=== PATIENT | female | born 1985 | race Caucasian/White ===

== ENCOUNTER 2021-09-19 05:26 | Inpatient (IN) ==
--- NOTE | 2021-09-15 18:59 | History & Physical Report ---
Date of Service September 15, 2021 Assessment & Plan (1) Twin , twins dichorionic and diamniotic: (2) 37 weeks gestation of : (3) Gestational HTN: (4) Supervision of elderly multigravida: (5) Obesity affecting , antepartum: (6) H/O section: (7) Encounter for sterilization: Plan: Given diagnosis of gestational hypertension, delivery is recommended at 37wks. Patient will be admitted for planned repeat c/s and tubal ligation on sundaysep 19 as she will be at that ega. Will review consent and sign day of surgery. History of Present Illness Chief Complaint: planned c/s, gestational htn, twin Primary Care Provider: NO PCP 35yo at 37wk ega on the day of her admission for planned section for di/di twin and gestational hypertension, with prior c/s, desiring repeat c/s and tubal ligation. Has denied dee or visual change. No ruq pain. Labs last were wnl but criteria met for gestational hypertension without severe features. Given ega this sunday decision was made to plan delivery on that date. She has elected primary section due to malpresentation of baby B. Growth u/s of twins have been aga. Has had regular testing that has been normal. PNC c/b 1. obesity 2. di/di twin 3. gestational hypertension 4. ama 5. prior c/s --desires repeat c/s 6. desires sterilization PNL rh pos, ri, gbs neg OBH: prior c/s, no op note GYNH: nl paps no stds Allergies Allergy/AdvReac Type Severity Reaction Status Date / Time amoxicillin Allergy Mild JOINT PAIN Verified 09/15/21 11:49 Home Medications Medication Instructions Recorded Confirmed Type fluticasone propionate 50 INTRANASAL 06/29/20 09/15/21 History mcg/actuation nasal spray,suspension omeprazole 1 tab PO DAILY 06/30/20 09/15/21 History prenat.vits,ernst,xfw-ypme-[id number] 1 tab PO DAILY 09/13/20 09/15/21 History cetirizine 10 mg capsule (Zyrtec) 10 mg PO DAILY 02/18/21 09/15/21 History aspirin 81 mg tablet,delayed 81 mg PO DAILY 07/08/21 09/15/21 History release (Adult Low Dose Aspirin) docusate sodium 50 mg capsule 50 mg PO DAILY 09/15/21 09/15/21 History Patient History Medical History (Updated 09/15/21 @ 19:07 by Kathy Malik MD, FACOG) Acid reflux Allergic rhinitis Asthma Morbid obesity Twin DI/DI twins Surgical History (Updated 09/15/21 @ 19:07 by Kathy Malik MD, FACOG) History of delivery Family History Grandmother Diabetes Social History Smoking Status: Never smoker Second Hand Exposure: No; Hx Alcohol Use: No Hx Substance Use: No Preferred Language: [place] marital status: marital status details: Hussein (32) [phone] Current Living Situation: Spouse and Family Current Living Situation Comment: lives with spouse, daughter and in laws, 1 dog current occupational status: employed current occupation: [employer] Feels Safe at Home: Yes Review of Systems as per Subjective / HPI Physical Exam Constitutional: WD/WN, vitals as above Gastrointestinal (Abdomen): soft gravid nt twin a cephalic, twin b transverse Musculoskeletal: tr edema nontender calves Neurologic: grossly normal dtrs patellar 2+, no clonus Psychiatric: A+Ox3, euthymic affect Coding Level of Care Code None Diagnoses Twin , twins dichorionic and diamniotic O30.049 37 weeks gestation of Z3A.37 Gestational HTN O13.9 Supervision of elderly multigravida O09.529 Obesity affecting , antepartum O99.210 H/O section Z98.891 Encounter for sterilization Z30.2
[2021-09-19] MEDS ORDERED: CITRIC ACID/SODIUM CITRATE 15 ML UDC PO SCH (06:00)
[2021-09-19] MEDS ORDERED: ceFAZolin 3,000 MG in DEXTROSE 5% 50 ML IV SCH (06:00)
[2021-09-19] MEDS ORDERED: LACTATED RINGER'S 1,000 ML IV SCH ×3 (06:00→11:13)
[2021-09-19 06:24] LABS: Basophils # (auto) 0.02 K/uL (0-0.2); Basophils % (auto) 0.2 %; Eosinophils # (auto) 0.09 K/uL (0-0.5); Eosinophils % (auto) 1.1 %; Hematocrit (blood only) 32.2 % (37-47); Hemoglobin 9.9 g/dL (12.0-16.0); Immature Granulocytes # (auto) 0.02 K/uL (0.00-0.02); Immature Granulocytes % (auto) 0.2 %; Lymphocytes # (auto) 2.11 K/uL (1.2-3.4); Lymphocytes % (auto) 25.4 %; Mean Corpuscular Hemoglobin 27.7 pg (25-34); Mean Corpuscular Hgb Conc 30.7 g/dL (32-36); Mean Corpuscular Volume 89.9 fL (80-100); Mean Platelet Volume 12.4 fL (7.4-10.4); Monocytes # (auto) 0.65 K/uL (0.11-0.59); Monocytes % (auto) 7.8 %; Neutrophils # (auto) 5.43 K/uL (1.4-6.5); Neutrophils % (auto) 65.3 %; Platelet Count 147 K/uL (130-400); RDW Coefficient of Variation 15.2 % (11.5-14.5); RDW Standard Deviation 50.1 fL (36.4-46.3); Red Blood Count 3.58 M/uL (4.2-5.4); White Blood Count 8.32 K/uL (4.8-10.8)
--- NOTE | 2021-09-19 07:20 | History & Physical Bridge Note ---
Date of Service September 19, 2021 History & Physical Bridge Note I have examined the patient, reviewed the History & Physical and in the interval since the performance of the History & Physical I have noted the following changes of clinical significance: no changes noted
--- NOTE | 2021-09-19 07:35 | Anesthesiology Consultation ---
Date of Service September 19, 2021 Assessment & Plan Chart Review Chart Review: Acceptable Risk for Surgery Consults Requested none History Surgery Operation Date: 09/19/21 08:55 Proposed Procedures p Section (Delivery of Baby Through Abdominal Incision) - Kathy Malik MD, FACOG s with Bilateral Tubal Ligation - Kathy Malik MD, FACOG Height/Weight Height: 5 ft 5 in Weight: 140.614 kg Allergies Allergy/AdvReac Type Severity Reaction Status Date / Time amoxicillin Allergy Mild JOINT PAIN Verified 09/19/21 05:48 Medications Home Medications Medication Instructions Recorded Confirmed Last Taken fluticasone propionate 50 INTRANASAL 06/29/20 09/15/21 09/12/21 21:00 mcg/actuation nasal spray,suspension omeprazole 1 tab PO DAILY 06/30/20 09/19/21 09/18/21 20:00 prenat.vits,ernst,[id number]-[id number] 1 tab PO DAILY 09/13/20 09/19/21 09/18/21 20:00 cetirizine 10 mg capsule (Zyrtec) 10 mg PO DAILY 02/18/21 09/19/21 09/18/21 20:00 aspirin 81 mg tablet,delayed 81 mg PO DAILY 07/08/21 09/19/21 09/18/21 20:00 release (Adult Low Dose Aspirin) docusate sodium 50 mg capsule 50 mg PO DAILY 09/15/21 09/19/21 09/17/21 20:00 Active Medications Generic Name Dose Route Start Last Admin Trade Name Freq PRN Reason Stop Dose Admin Citric Acid/Sodium Citrate 30 ml 09/19/21 06:00 09/19/21 07:31 Citric Acid/Sodium Citrate 15 Ml Udc PO 09/19/21 14:00 30 ml PREOP KVNG Administration Cefazolin Sodium 3,000 mg/ 72.5 mls @ 145 mls/hr 09/19/21 06:00 09/19/21 07:30 Dextrose IV 09/19/21 14:00 145 mls/hr PREOP KVNG Administration Past Medical History Medical History Acid reflux Allergic rhinitis Asthma Morbid obesity Twin DI/DI twins Past Family History Family History Grandmother Diabetes Past Surgical History Surgical History History of delivery Social History Smoking Status: Never smoker Hx Alcohol Use: No Hx Substance Use: No substance use type: does not use Physical Exam Vital Signs Last Vital Signs Temp 36.7 C 09/19/21 05:57 Pulse 87 09/19/21 07:28 Resp 16 09/19/21 05:57 BP 132/69 09/19/21 07:06 Pulse Ox 80 L 09/19/21 07:28 Testing Laboratory Results 09/19/21 05:58 Blood Type A Positive 09/19/21 05:58 Antibody Screen NEGATIVE 09/19/21 05:58
[2021-09-19] MEDS ORDERED: NALOXONE HCL 0.4 MG/1 ML VIAL/CARP IV PRN (08:10)
[2021-09-19] MEDS ORDERED: NALOXONE HCL 1 MG in SODIUM CHLORIDE 0.9% 1000ML 1,000 ML IV PRN (08:10)
[2021-09-19] MEDS ORDERED: ePHEDrine sulfate 50 MG/ML AMP IV PRN ×2 (08:10→08:11)
[2021-09-19] MEDS ORDERED: NALOXONE HCL 0.08 MG in SYRINGE 1.8 ML IV PRN (08:10)
[2021-09-19] MEDS ORDERED: MoRPHine SULFATE PF 1 MG/ML 10 ML AMP/VIAL INT SPINAL ONE (08:10)
[2021-09-19] MEDS ORDERED: diphenhydrAMINE 50 MG/ML VIAL IV PRN (08:10)
[2021-09-19] MEDS ORDERED: LACTATED RINGER'S 500 ML IV PRN (08:10)
[2021-09-19] MEDS ORDERED: NALBUPHINE HCL INJ 10 MG/ML AMP IV PRN (08:10)
[2021-09-19] MEDS ORDERED: HYDROmorphone INJ 2 MG/ML SYR/VIAL IV PRN (08:11)
[2021-09-19] MEDS ORDERED: ATROPINE SULFATE 0.1 MG/ML 10ML SYR IV PRN (08:11)
[2021-09-19] MEDS ORDERED: fentaNYL citrate 100 MCG/2 ML VIAL IV PRN (08:11)
[2021-09-19] MEDS ORDERED: ACETAMINOPHEN 1,000 MG/100 ML VIAL IV STA (08:11)
[2021-09-19] MEDS ORDERED: KETOROLAC 30 MG/ML VIAL IV PRN (08:12)
[2021-09-19] MEDS ORDERED: NO NARCOTICS OR SEDATIVES SCH (08:15)
[2021-09-19] MEDS ORDERED: SODIUM CHLORIDE 0.9% 1000ML 1,000 ML IV SCH (08:15)
[2021-09-19] MEDS ORDERED: DC INTRASPINAL MORPHINE SCH (08:15)
--- NOTE | 2021-09-19 08:42 | Post Operative Brief Note ---
PG Immediate Post Op with CF Date of Surgery September 19, 2021 Pre & Post Diagnosis Operation Date: 09/19/21 08:55 Pre-Op Diagnosis: Twins:IUP 37 weeks; AMA;Previous Caesarean Section;Gestational Hypertension;Desires Sterilization Post-Op Diagnosis: Same; Delivery of a Twin Boy "A" @ 0805 and Twin Girl "B" @ 0806 (Main OR 3) I identified the patient and participated in the time-out.: Yes Procedure Operation Date: 09/19/21 08:55 Actual Procedures p Repeat Low Transverse Section (Delivery of Baby Through Abdominal Incision) - Kathy Malik MD, FACOG s Modified Parmjit Bilateral Tubal Ligation - Kathy Malik MD, FACOG Surgeon Kathy Malik MD, FACOG Superintendent Renting Managing Pablo Estimated Blood Loss 600 Findings Consistent with Post-Op Diagnosis (viable twins, male and female, both delivered cephalic. normal uterus, tubes and ovaries bilaterally) Fluids 1000 Specimens Specimen Description: A. Placenta-hold B. Cord Blood C. portions of left and right fallopian tubes Drains Raza Catheter Anesthesia Type Spinal Complications none Disposition Accompanied Patient To Recovery: No Disposition: L&D
--- NOTE | 2021-09-19 08:59 | Operative Report ---
PG Post Operative Report Pre & Post Diagnosis Operation Date: 09/19/21 08:55 Pre-Op Diagnosis: 1. 37 week Di-Di Twin IUP 2. AMA 3. Gestational Hypertension 4. Previous Caesarean Section, desires repeat section 5. Desires sterilization Post-Op Diagnosis: Same; Delivery of a Twin Boy "A" @ 0805 and Twin Girl "B" @ 0806 (Main OR 3) I identified the patient and participated in the time-out.: Yes Procedure Operation Date: 09/19/21 08:55 Actual Procedures 1. Repeat Low Transverse Section 2. Modified Parmjit Bilateral Tubal Ligation Surgeon Kathy Malik MD, FACOG Pulmonology Technician Pablo Estimated Blood Loss 600 Findings Consistent with Post-Op Diagnosis (viable twins, male-apgars 6,9 and female- apgars 8,9, both delivered cephalic. normal uterus, tubes and ovaries bilaterally) Fluids 1000 Specimens cord blood x 2 portion of right fallopian tube, portion of left fallopian tube Drains johnson Anesthesia Type Spinal Complications none Disposition Accompanied Patient To Recovery: No Disposition: L&D Indications 35yo at 37wks with di-di twin and gestational hypertension for planned section due to prior section, desires repeat. She also desires permanent sterilization. Description of Procedure The patient was taken to the operating room and identified. After adequate anesthesia was obtained, she was placed in the supine position with a leftward tilt on the operating table and prepped and draped in the usual sterile fashion. A johnson catheter had already been placed. The knife was used to create a Pfannensteil skin incision that was carried down to the underlying layer of fascia. The fascia was nicked in the midline and this opening was extended laterally using Mazariegos scissors. Felisha clamps were placed on the superior and inferior aspect of the fascial incision tenting it upward and the underlying rectus muscles were dissected off the overlying fascia both sharply and bluntly using Mazariegos scissors. The rectus muscles were bluntly in the midline. The peritoneal cavity was bluntly entered into. This opening was stretched. The large Angelica self retractor was placed. The vesicouterine peritoneum was elevated and opened up into and the bladder flap was created digitally and bl adder blade was replaced. The knife was used to create a hysterotomy and this opening was stretched. The operators hand was placed through the hysterotomy and the head, baby A, was elevated and flexed and with fundal pressure the head was delivered. The shoulders and body were rapidly delivered. The cord was clamped and cut and the 's mouth and nares were bulb suction. The infant was handed off to the awaiting pediatricians. Cord blood was obtained. The plug saw operator's hand was placed through the hysterotomy and cephalic was noted, baby B amniotic sac was intact. The sac was ruptured and the head was flexed and delivered and with fundal pressure was delivered. The shoulders and body were rapidly delivered. The mouth and nose were buld suctioned. The cord was doubly clamped and cut and the was handed off to the awaiting trust officer. The placentas x 2 were manually expressed. The uterus was exteriorized and cleared of all clots and debris. Dilute IV Pitocin was begun. The uterine tone was improving. The hysterotomy was closed in a running interlocking fashion using 0 Vicryl. The hysterotomy was hemostatic. Attention was turned to the left fallopian tube that was followed out to its fimbriated end. The tube was elevated using a kwabena clamp and a knuckle of tube was doubly ligated with 2-0 plain suture and transected. The specimen was sent. The stumps were cauterized with the bovie. The right fallopian tube was identified to its fimbriated end, elevated, double ligated and transected in a similar fashion. The specimen was sent and the stump of tube was cauterized with the bovie. The uterus was returned to the abdomen. The gutters were cleared of all clots and debris. The hysterotomy was reinspected and noted to be hemostatic and the tubal sites were intact and hemostatic. The Angelica retractor was removed. The fascia was then closed in running fashion using 0 Vicryl. The subcutaneous fat was copiously irrigated and reapproximated using 2-0 chromic. The skin was closed in a subcuticular fashion using 4-0 Vicryl. At this point the procedure was terminated. The patient was transferred to the recovery room in stable condition. All sponge, lap and needle counts are correct x2. I attest to the content of the Intraoperative Record and any orders documented therein. Any exceptions are noted below. OB Procedure Charges [id number] Add on Tubal for C/S
[2021-09-19] MEDS ORDERED: MoRPHine SULFATE PF 1 MG/ML 10 ML AMP/VIAL EPI ONE ×2 (10:56)
[2021-09-19] MEDS ORDERED: OXYTOCIN 10 UNITS/ML 10ML VIAL ONE (10:57)
[2021-09-19] MEDS ORDERED: ePHEDrine sulfate 50 MG/ML SYR ONE (10:57)
[2021-09-19] MEDS: KETOROLAC 30 MG/ML VIAL IV PRN ×2 (11:10→20:03)
[2021-09-19] MEDS ORDERED: HYDROCORTISONE ACETATE 25 MG SUPP PR PRN (11:13)
[2021-09-19] MEDS ORDERED: ONDANSETRON INJ 2 MG/ML 2 ML VIAL IV PRN (11:13)
[2021-09-19] MEDS ORDERED: DIPHTHERIA/TETANUS/PERTUSSIS 0.5 ML SYR/VIAL IM ONE (11:13)
[2021-09-19] MEDS ORDERED: SUPERCREAM 0.870% 15 GM JAR EXT PRN (11:13)
[2021-09-19] MEDS ORDERED: BENZOCAINE 20% AER SPR 82.5 GM CAN EXT PRN (11:13)
[2021-09-19] MEDS ORDERED: MAGNESIUM HYDROXIDE SUSP 30 ML UDC PO PRN (11:13)
--- NOTE | 2021-09-19 11:35 | Anesthesiology Progress Note ---
Date of Service September 19, 2021 Anesthesia Post Procedure Vital Signs Vital Signs: Temp Pulse Resp BP Pulse Ox 09/19/21 11:19 91 H 98 09/19/21 11:14 79 99 09/19/21 11:13 71 148/73 H 09/19/21 11:09 76 98 09/19/21 11:04 75 100 09/19/21 11:00 75 163/82 H 09/19/21 10:59 70 99 09/19/21 10:54 77 99 09/19/21 10:52 36.8 C 16 09/19/21 10:49 74 99 09/19/21 10:44 72 100 09/19/21 10:39 80 100 09/19/21 10:34 74 99 09/19/21 10:29 85 98 09/19/21 10:27 70 141/85 H 09/19/21 10:24 73 100 09/19/21 10:22 36.7 C 18 09/19/21 10:19 73 100 09/19/21 10:14 73 98 09/19/21 10:09 66 98 09/19/21 10:04 77 97 09/19/21 09:59 84 98 09/19/21 09:54 80 96 09/19/21 09:53 74 134/89 09/19/21 09:52 16 09/19/21 09:49 71 96 09/19/21 09:44 74 97 09/19/21 09:43 72 139/83 09/19/21 09:42 18 09/19/21 09:39 76 95 09/19/21 09:34 69 96 09/19/21 09:32 67 16 141/66 H 09/19/21 09:29 77 96 09/19/21 09:24 77 96 09/19/21 09:22 75 16 153/81 H 09/19/21 09:19 80 97 09/19/21 09:14 75 96 09/19/21 09:12 75 18 126/60 09/19/21 09:09 74 96 09/19/21 09:04 73 100 09/19/21 09:02 76 18 119/57 L 09/19/21 09:00 82 85 L 09/19/21 08:59 85 100 09/19/21 08:54 75 100 09/19/21 08:52 36.4 C L 80 20 132/71 09/19/21 08:49 81 98 09/19/21 07:28 87 80 L 09/19/21 07:27 86 93 09/19/21 07:22 90 94 09/19/21 07:19 88 86 L 09/19/21 07:17 82 94 09/19/21 07:12 82 94 09/19/21 07:07 87 94 09/19/21 07:06 85 132/69 09/19/21 07:02 87 84 L 09/19/21 06:57 84 96 09/19/21 06:52 84 93 09/19/21 06:51 83 93 09/19/21 06:47 87 92 09/19/21 06:44 83 89 L 09/19/21 06:42 81 91 09/19/21 06:37 76 95 09/19/21 06:35 82 92 09/19/21 06:32 79 94 09/19/21 06:29 77 92 09/19/21 06:27 80 97 09/19/21 06:22 80 91 09/19/21 06:17 77 89 L 09/19/21 06:12 79 90 09/19/21 06:09 83 90 09/19/21 06:07 83 90 09/19/21 06:02 83 94 09/19/21 06:01 78 93 09/19/21 05:57 36.7 C 78 16 140/87 92 09/19/21 05:52 78 92 09/19/21 05:42 89 140/87 09/19/21 05:35 36.7 C 18 Pain Intensity Lower Abdomen: Pain Intensity: 3 Transfer of Care Handoff Completed per policy Notes Mental Status: alert / awake / arousable and participated in evaluation Patient Amnestic to Procedure: Yes Nausea / Vomiting: adequately controlled Pain: adequately controlled Airway Patency, RR, SpO2: stable & adequate BP & HR: stable & adequate Hydration State: stable & adequate Neuraxial Anesthesia: was administered and sensory block is resolving Anesthetic Complications: no major complications apparent
[2021-09-19] MEDS: OXYTOCIN 20 UNITS in LACTATED RINGER'S 1,000 ML IV SCH ×2 (12:24→21:02)
[2021-09-19] MEDS: SIMETHICONE 80 MG CHEW PO SCH ×3 (13:55→20:07)
[2021-09-19] MEDS: DOCUSATE SODIUM 100 MG CAP PO SCH (20:07)
[2021-09-20] MEDS ORDERED: PROMETHAZINE HCL 25 MG in SODIUM CHLORIDE 0.9% 50 ML IV PRN (02:10)
[2021-09-20] MEDS ORDERED: KETOROLAC 30 MG/ML VIAL IV PRN (02:10)
[2021-09-20] MEDS ORDERED: diphenhydrAMINE Capsule 25 MG CAP PO PRN (02:10)
[2021-09-20] MEDS ORDERED: diphenhydrAMINE 50 MG/ML VIAL IV PRN (02:10)
[2021-09-20] MEDS: IBUPROFEN 600 MG TAB PO PRN ×4 (03:34→22:17)
[2021-09-20] MEDS: oxyCODONE/ACETAMINOPHEN 5mg/325mg TAB PO PRN ×4 (04:36→22:17)
[2021-09-20 06:31] LABS: Basophils # (auto) 0.03 K/uL (0-0.2); Basophils % (auto) 0.3 %; Eosinophils # (auto) 0.08 K/uL (0-0.5); Eosinophils % (auto) 0.9 %; Hematocrit (blood only) 30.3 % (37-47); Hemoglobin 9.5 g/dL (12.0-16.0); Immature Granulocytes # (auto) 0.03 K/uL (0.00-0.02); Immature Granulocytes % (auto) 0.3 %; Lymphocytes # (auto) 1.97 K/uL (1.2-3.4); Lymphocytes % (auto) 22.4 %; Mean Corpuscular Hgb Conc 31.4 g/dL (32-36); Mean Corpuscular Volume 89.4 fL (80-100); Monocytes # (auto) 0.64 K/uL (0.11-0.59); Monocytes % (auto) 7.3 %; Neutrophils # (auto) 6.03 K/uL (1.4-6.5); Neutrophils % (auto) 68.8 %; Platelet Count 130 K/uL (130-400); Platelet Estimate Decreased (Normal); Polychromasia 1+; RDW Coefficient of Variation 15.4 % (11.5-14.5); RDW Standard Deviation 49.6 fL (36.4-46.3); Red Blood Count 3.39 M/uL (4.2-5.4); White Blood Count 8.78 K/uL (4.8-10.8)
--- NOTE | 2021-09-20 06:57 | Obstetrical Progress Note ---
Date of Service <Lashanda De La Rosa DO - Last Filed: 09/20/21 07:23> September 20, 2021 Assessment & Plan <Lashanda De La Rosa DO - Last Filed: 09/20/21 07:23> (1) Supervision of elderly multigravida: (2) Morbid obesity: (3) Gestational HTN: (4) Status post section: 35 yo post op day1 from c/s with advanced maternal age and gestational HTN, doing well. -Continue routine post care. -vital signs reviewed and WNL (Tmax 36.8 ) -Blood Type A+, GBS-, Rubella Immune -Encourage ambulation, monitor and control pain with Motrin, tylenol PRN, resume regular diet, monitor lochia -encourage breast feeding -hemoglobin 9.5 -will suggest iron supplement upon discharge Day #:: 1 <Alicja Tran MD, FACOG - Last Filed: 09/20/21 07:31> (1) Supervision of elderly multigravida: (2) Morbid obesity: (3) Gestational HTN: (4) Status post section: Subjective <Lashanda De La Rosa DO - Last Filed: 09/20/21 07:23> Ambulation: ambulating normally Voiding: voiding difficulty Passing Gas:: Yes Diet Tolerance:: regular diet Lochia:: Moderate Feeding Type:: breast feeding Current Pain Level(1-10): 1 Review of Systems Negative fever chills Negative headache dizziness Negative chest pain palpitations SOB Negative nausea vomitting diarrhea constipation Negative numbness tingling rash swelling Physical Exam <DO Tori Martinez Last Filed: 09/20/21 07:23> General: Alert, oriented. No acute distress. Cardiac: Regular rate and rhythm, no murmurs/rubs/gallops. Respiratory: Clear to auscultation bilaterally a/p, no wheezes/rales/rhonchi. No increased work of breathing. Symmetrical chest rise. No respiratory distress. Abdomen: Soft, nontender, nondistended. Bowel sounds present. Uterus: Uterine fundus firm, palpable 2 cm below umbilicus. Surgical scar clean and healing well. Lower Extremities: No lower extremity edema or swelling. No deep calf pain. Keyonna's negative bilaterally. Results & Data ([facility]) <Lashanda De La Rosa DO - Last Filed: 09/20/21 07:23> Vital Signs (Past 12 Hours) Vital Signs Temp Pulse Resp BP Pulse Ox 09/20/21 03:30 36.7 C 82 18 143/84 H 98 09/20/21 01:54 14 95 09/20/21 00:35 16 96 09/20/21 00:03 16 96 09/19/21 23:10 36.6 C 73 16 134/83 95 09/19/21 21:20 18 96 09/19/21 21:00 18 95 09/19/21 20:20 18 98 09/19/21 19:35 36.7 C 76 18 154/99 H 100 09/19/21 19:25 18 98 <Alicja Tran MD, FACOG - Last Filed: 09/20/21 07:31> Co-Signing Physician Notes Resident Physician Supervision Note: I interviewed and examined the patient. Discussed with [Name of resident] and agree with findings and plan as documented in the note. Any exceptions or clarifications are listed here: [None] Documented By: Alicja Tran MD, FACOG Resident Activity Tracking <Lashanda De La Rosa DO - Last Filed: 09/20/21 07:23> Resident Involvement: Resident Care Provided Care Provided: Adult Hospital Medicine
[2021-09-20] MEDS ORDERED: MORPHINE SUL INT SPINAL ONE (09:45)
[2021-09-20] MEDS: PRENATAL VITAMIN 1 TAB PO SCH (10:13)
[2021-09-20] MEDS: FERROUS SULFATE 325 MG TAB PO SCH (10:13)
[2021-09-20] MEDS: DOCUSATE SODIUM 100 MG CAP PO SCH ×2 (10:13→20:36)
[2021-09-20] MEDS: SIMETHICONE 80 MG CHEW PO SCH ×4 (10:15→20:36)
[2021-09-20] MEDS: CETIRIZINE HCL 10 MG TABLET PO SCH (10:16)
[2021-09-20] MEDS: PANTOprazole 40 MG TAB PO SCH (10:16)
[2021-09-21] MEDS: oxyCODONE/ACETAMINOPHEN 5mg/325mg TAB PO PRN ×6 (04:44→22:28)
[2021-09-21] MEDS: IBUPROFEN 600 MG TAB PO PRN ×5 (04:45→22:28)
[2021-09-21 06:47] LABS: Hematocrit (blood only) 29.9 % (37-47); Hemoglobin 9.3 g/dL (12.0-16.0)
--- NOTE | 2021-09-21 07:27 | Obstetrical Progress Note ---
Date of Service <Lashanda De La Rosa DO - Last Filed: 09/21/21 07:27> September 21, 2021 Assessment & Plan <Lashanda De La Rosa DO - Last Filed: 09/21/21 07:27> (1) Supervision of elderly multigravida: (2) Morbid obesity: (3) Gestational HTN: (4) Status post section: 35 yo post op day2 from c/s with advanced maternal age and gestational HTN, doing well. -Continue routine post care. -vital signs reviewed and WNL (Tmax 36.8 ) -Blood Type A+, GBS-, Rubella Immune -Encourage ambulation, monitor and control pain with Motrin, tylenol PRN, resume regular diet, monitor lochia -encourage breast feeding -hemoglobin 9.3 -will suggest iron supplement upon discharge Day #:: 2 <Kadi Al MD, FACOG - Last Filed: 09/21/21 07:56> (1) Supervision of elderly multigravida: (2) Morbid obesity: (3) Gestational HTN: (4) Status post section: Subjective <Lashanda De La Rosa DO - Last Filed: 09/21/21 07:27> Ambulation: ambulating normally Voiding: no voiding problems Passing Gas:: Yes Diet Tolerance:: regular diet Lochia:: Small Feeding Type:: breast feeding Current Pain Level(1-10): 1 Review of Systems Minor irritation after urination Negative fever chills Negative headache dizziness Negative chest pain palpitations SOB Negative nausea vomitting diarrhea constipation Negative numbness tingling rash swelling Physical Exam <DO Tori Martinez Last Filed: 09/21/21 07:27> General: Alert, oriented. No acute distress. Cardiac: Regular rate and rhythm, no murmurs/rubs/gallops. Respiratory: Clear to auscultation bilaterally a/p, no wheezes/rales/rhonchi. No increased work of breathing. Symmetrical chest rise. No respiratory distress. Abdomen: Soft, nontender, nondistended. Bowel sounds present. Uterus: Uterine fundus firm, palpable 2 cm below umbilicus. Surgical scar clean and healing well. Lower Extremities: No lower extremity edema or swelling. No deep calf pain. Keyonna's negative bilaterally. Results & Data ([facility]) <Lashanda De La Rosa DO - Last Filed: 09/21/21 07:27> Vital Signs (Past 12 Hours) Vital Signs Temp Pulse Resp BP Pulse Ox 09/21/21 00:30 36.8 C 76 16 125/79 98 <Kadi Al MD, FACOG - Last Filed: 09/21/21 07:56> Co-Signing Physician Notes Resident Physician Supervision Note: I interviewed and examined the patient. Discussed with Dr. De La Rosa and agree with findings and plan as documented in the note. Any exceptions or clarifications are listed here: Doing well, POD 2. Still doing some struggling with breast feeding. Continue to follow. Documented By: Kadi Al MD, FACOG Resident Activity Tracking <Lashanda De La Rosa DO - Last Filed: 09/21/21 07:27> Resident Involvement: Resident Care Provided Care Provided: Adult Hospital Medicine
--- NOTE | 2021-09-21 07:54 | Medical Student Progress Note ---
Date of Service September 21, 2021 Assessment & Plan (1) Status post section: Plan: Chantal is a 35 yo on postop day 2 s/p elective c/s and tubal ligation @ 37 weeks ega for di/di twin , complicated by recently diagnosed gestational HTN. Pt has permanent control via tubal ligation and desires an additional 24-48 hours of inpatient hospitalization for PP care and support. 1. Continue routine PP care 2. Continue supporting 3. Plan for d/c either tomorrow or Sunday Admission and Anticipated Discharge Date Admission Date: September 19, 2021 Subjective Chantal is a 35 yo on postop day 2 s/p elective c/s and tubal ligation @ 37 weeks ega for di/di twin , complicated by recently diagnosed gestational HTN for which she is not currently taking antihypertensive medication. Pt has a hx of prior c/s and desired repeat c/s and sterilization. Dr. Malik delivered a viable infant male and viable female via c/s w/o complication. Overnight, Chantal's BP's ranged borderline high with one hypertensive read of 155/91, BP's since normalized this am. Patient seen at bedside. Chantal is voiding urine about every 3 hours with minimal burning/discomfort. She has not voided stool but is passing gas. Pt is ambulating without dizziness or weakness but does have mild lower abd discomfort. This morning pt rated pain 4/10, received Motrin and Percocet and now rates pain 0/10. Pt's mood has been consistently good and "optimistic". reports 3-4 hours of sleep last night. Pt reports no milk let down but has desire to breastfeed. Started supplementing with formula while infant is on the breast. Baby boy receive his circumcision yesterday. Pt reports bright red blood lochia that does not soak through her pads. She notes using about 3 pads/day. Pt desires to stay inpatient an additional 24-48 hours to maximize technique and recovery. ROS: pt denies headache, SOB, chest pain, fever, N/V, and leg pain Physical Exam Constitutional: Well-appearing, sitting in bed comfortably Respiratory: normal respiratory effort, lungs clear to auscultation Cardiovascular: Rate/Rhythm: regular rate and regular rhythm No murmur Mild edema on dorsum of feet to level of mid calf b/l. No erythema, warmth, palpable cord, or pain on lower extremities. SCD's on. Gastrointestinal (Abdomen): Bowel sounds present. Diffuse mild pain to palpation. Uterine fundus firm, 1cm below umbilicus. c/s incision clean and dry. Results & Data ([facility]) Vital Signs (Past 12 Hours) Vital Signs Temp Pulse Resp BP Pulse Ox 09/21/21 00:30 36.8 C 76 16 125/79 98 Supervising Attestation Patient seen and evaluated with resident, please see note.
[2021-09-21] MEDS: DOCUSATE SODIUM 100 MG CAP PO SCH ×2 (08:54→20:48)
[2021-09-21] MEDS: FERROUS SULFATE 325 MG TAB PO SCH (08:54)
[2021-09-21] MEDS: SIMETHICONE 80 MG CHEW PO SCH ×4 (08:55→20:48)
[2021-09-21] MEDS: PANTOprazole 40 MG TAB PO SCH (08:55)
[2021-09-21] MEDS: CETIRIZINE HCL 10 MG TABLET PO SCH (08:55)
[2021-09-21] MEDS: PRENATAL VITAMIN 1 TAB PO SCH (08:55)
[2021-09-22] MEDS: IBUPROFEN 600 MG TAB PO PRN ×4 (05:12→16:44)
--- NOTE | 2021-09-22 07:20 | Obstetrical Progress Note ---
Date of Service <Lashanda De La Rosa DO - Last Filed: 09/22/21 07:20> September 22, 2021 Assessment & Plan <Lashanda De La Rosa DO - Last Filed: 09/22/21 07:20> (1) Supervision of elderly multigravida: (2) Morbid obesity: (3) Gestational HTN: (4) Status post section: 35 yo post op day3 from c/s with advanced maternal age and gestational HTN, doing well. -Continue routine post care. -vital signs reviewed and WNL (Tmax 36.8 ) -Blood Type A+, GBS-, Rubella Immune -Encourage ambulation, monitor and control pain with Motrin, tylenol PRN, resume regular diet, monitor lochia -encourage breast feeding -hemoglobin 9.3 -will suggest iron supplement upon discharge Day #:: 3 <Kathy Malik MD, FACOG - Last Filed: 09/22/21 08:57> (1) Supervision of elderly multigravida: (2) Morbid obesity: (3) Gestational HTN: (4) Status post section: Subjective <Lashanda De La Rosa DO - Last Filed: 09/22/21 07:20> Ambulation: ambulating normally Voiding: no voiding problems Passing Gas:: Yes Diet Tolerance:: regular diet Lochia:: Small Feeding Type:: breast feeding (with bottle) Current Pain Level(1-10): 0 Review of Systems Negative fever chills Negative headache dizziness Negative chest pain palpitations SOB Negative nausea vomitting diarrhea constipation Negative numbness tingling rash swelling Physical Exam <Lashanda De La Rosa DO - Last Filed: 09/22/21 07:20> General: Alert, oriented. No acute distress. Cardiac: Regular rate and rhythm, no murmurs/rubs/gallops. Respiratory: Clear to auscultation bilaterally a/p, no wheezes/rales/rhonchi. No increased work of breathing. Symmetrical chest rise. No respiratory distress. Abdomen: Soft, nontender, nondistended. Bowel sounds present. Uterus: Uterine fundus firm, palpable at umbilicus. Surgical scar clean and healing well. Lower Extremities: No lower extremity edema or swelling. No deep calf pain. Keyonna's negative bilaterally. Results & Data ([facility]) <Lashanda Dong, DO - Last Filed: 09/22/21 07:20> Vital Signs (Past 12 Hours) Vital Signs Temp Pulse Resp BP Pulse Ox 09/21/21 23:05 36.7 C 72 20 142/88 H 98 09/21/21 20:00 36.5 C 81 20 138/81 97 <Kathy Malik MD, FACOG - Last Filed: 09/22/21 08:57> Co-Signing Physician Notes Resident Physician Supervision Note: I was present with Dr. De La Rosa during the history and exam. I discussed the case with the resident and agree with the findings and plan as documented in the note. Any exceptions or clarifications are listed here: pt doing well. breast feeding and pumping. appreciates all the help from nursing with twins. ff 2 down nt, incision c/d/i. ext nt calves. routine pp care. rh pos, ri. hgb trend noted. no further. Documented By: Kathy Malik MD, FACOG Resident Activity Tracking <Lashanda De La Rosa DO - Last Filed: 09/22/21 07:20> Resident Involvement: Resident Care Provided Care Provided: Adult Hospital Medicine
[2021-09-22] MEDS: PRENATAL VITAMIN 1 TAB PO SCH (08:46)
[2021-09-22] MEDS: SIMETHICONE 80 MG CHEW PO SCH ×4 (08:46→19:56)
[2021-09-22] MEDS: FERROUS SULFATE 325 MG TAB PO SCH (08:46)
[2021-09-22] MEDS: DOCUSATE SODIUM 100 MG CAP PO SCH ×2 (08:47→19:56)
[2021-09-22] MEDS: PANTOprazole 40 MG TAB PO SCH (08:47)
[2021-09-22] MEDS: CETIRIZINE HCL 10 MG TABLET PO SCH (08:47)
[2021-09-23] MEDS: IBUPROFEN 600 MG TAB PO PRN ×3 (02:10→12:31)
[2021-09-23] MEDS: oxyCODONE/ACETAMINOPHEN 5mg/325mg TAB PO PRN ×2 (02:11→12:31)
--- NOTE | 2021-09-23 06:18 | Obstetrical Progress Note ---
Date of Service <Lashanda De La Rosa DO - Last Filed: 09/23/21 06:39> September 23, 2021 Assessment & Plan <Lashanda De aL Rosa DO - Last Filed: 09/23/21 06:39> (1) Supervision of elderly multigravida: (2) Morbid obesity: (3) Gestational HTN: (4) Status post section: 35 yo post op day4 from c/s with advanced maternal age and gestational HTN, doing well. -Continue routine post care. -vital signs reviewed and WNL (Tmax 36.8 ) -Blood Type A+, GBS-, Rubella Immune -Encourage ambulation, monitor and control pain with Motrin, tylenol PRN, resume regular diet, monitor lochia -encourage breast feeding with bottle supplementation -hemoglobin 9.3 -will suggest iron supplement upon discharge -patient comfortable with discharge Day #:: 4 <Chetna Shah MD - Last Filed: 09/23/21 07:54> (1) Supervision of elderly multigravida: (2) Morbid obesity: (3) Gestational HTN: (4) Status post section: Subjective <Lashanda De La Rosa DO - Last Filed: 09/23/21 06:39> Ambulation: ambulating normally Voiding: no voiding problems Passing Gas:: Yes Diet Tolerance:: regular diet Lochia:: Small Feeding Type:: breast feeding Current Pain Level(1-10): 1 Review of Systems positive leg swellling Negative fever chills Negative headache dizziness Negative chest pain palpitations SOB Negative nausea vomitting diarrhea constipation Physical Exam <DO Tori Martinez Last Filed: 09/23/21 06:39> General: Alert, oriented. No acute distress. Cardiac: Regular rate and rhythm, no murmurs/rubs/gallops. Respiratory: Clear to auscultation bilaterally a/p, no wheezes/rales/rhonchi. No increased work of breathing. Symmetrical chest rise. No respiratory distress. Abdomen: Soft, nontender, nondistended. Bowel sounds present. Uterus: Uterine fundus firm, palpable 2cm under umbilicus. Surgical scar clean and healing well. Lower Extremities: No lower extremity edema or swelling. No deep calf pain. Keyonna's negative bilaterally. Results & Data ([facility]) <Lashanda De La Rosa DO - Last Filed: 09/23/21 06:39> Vital Signs (Past 12 Hours) Vital Signs Temp Pulse Resp BP 09/22/21 23:50 36.4 C L 78 18 147/90 H <Chetna Shah MD - Last Filed: 09/23/21 07:54> Co-Signing Physician Notes Resident Physician Supervision Note: I interviewed and examined the patient. Discussed with Dr. De La Rosa and agree with findings and plan as documented in the note. Any exceptions or clarifications are listed here: [ ] Documented By: Chetna Shah MD, FACOG Resident Activity Tracking <Lashanda De La Rosa DO - Last Filed: 09/23/21 06:39> Resident Involvement: Resident Care Provided Care Provided: Adult Hospital Medicine
[2021-09-23] MEDS: SIMETHICONE 80 MG CHEW PO SCH ×2 (08:45→12:32)
[2021-09-23] MEDS: PRENATAL VITAMIN 1 TAB PO SCH (08:45)
[2021-09-23] MEDS: FERROUS SULFATE 325 MG TAB PO SCH (08:45)
[2021-09-23] MEDS: DOCUSATE SODIUM 100 MG CAP PO SCH (08:45)
[2021-09-23] MEDS: CETIRIZINE HCL 10 MG TABLET PO SCH (09:22)
[2021-09-23] MEDS: PANTOprazole 40 MG TAB PO SCH (09:22)
--- NOTE | 2021-09-27 12:24 | Discharge Summary ---
Date of Service Date of admission: 09/19/21 Date of discharge: September 23, 2021 Admission HPI Per Admitting Provider 35yo at 37wk ega on the day of her admission for planned section for di/di twin and gestational hypertension, with prior c/s, desiring repeat c/s and tubal ligation. Has denied dee or visual change. No ruq pain. Labs last were wnl but criteria met for gestational hypertension without severe features. Given ega this sunday decision was made to plan delivery on that date. She has elected primary section due to malpresentation of baby B. Growth u/s of twins have been aga. Has had regular testing that has been normal. PNC c/b 1. obesity 2. di/di twin 3. gestational hypertension 4. ama 5. prior c/s --desires repeat c/s 6. desires sterilization PNL rh pos, ri, gbs neg OBH: prior c/s, no op note GYNH: nl paps no stds Discharge Data Consultations 09/19/21 05:29 Consult Anesthesiology Stat Procedures Performed Operation Date: 09/19/21 08:55 Actual Procedures p Repeat Low Transvers Section (Delivery of Baby Through Abdominal Incision) - Kathy Malik MD, FACOG s with Modified [place] Bilateral Tubal Ligation - Kathy Malik MD, FACOG Hospital Course (1) Gestational HTN: (2) Twin , twins dichorionic and diamniotic: (3) Obesity affecting , antepartum: (4) Supervision of elderly multigravida: (5) H/O section: (6) Encounter for sterilization: The patient underwent the above stated procedure without incident and her postoperative course and recovery was uncomplicated. On her postoperative day #4 she was tolerating a regular diet, voiding spontaneously, ambulating without problem and was using oral meds for adequate pain control. Her postoperative hemoglobin was 9.3. She was given written and verbal discharge instructions and told to followup in office at 6wks. She was given appropriate pain medicine prescriptions. Coding Level of Care Code None Diagnoses Gestational HTN O13.9 Twin , twins dichorionic and diamniotic O30.049 Obesity affecting , antepartum O99.210 Supervision of elderly multigravida O09.529 H/O section Z98.891 Encounter for sterilization Z30.2
== END 2021-09-23 14:55 | disposition home or self-care (01) | DRG 785 ==
LOC: 4S1 05:26 → PREOBSVTOIN 07:48 → 4S2 11:30 → EDSTATUS 09-30 08:50
PROC: M.PPTLD (2021-09-19 08:55)